=== PATIENT | female | born 1955 | race Caucasian/White ===

== ENCOUNTER 2018-01-17 20:48 | Emergency (ER) | payer OTHER ==
[~2018-01-17 20:48] MED LIST: IBUP-238; MECL25 PO
[2018-01-17 20:59] VITALS: BP 180/86; PULSE 98; RESP 20; TEMP 97.8; O2SAT 100
[2018-01-17] MEDS ORDERED: GABA800T PO (21:11)
[2018-01-17] MEDS ORDERED: GABA100C4 PO (21:11)
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
[2018-01-17] MEDS ORDERED: oxyCODONE/ACETAMINOPHEN 7.5 MG/325 MG TAB PO ONE (22:15)
[2018-01-17] MEDS ORDERED: PERC5TAB12 PO (22:20)
[2018-01-17 22:32] VITALS: BP 145/69
== END 2018-01-17 22:32 | disposition home or self-care (01) ==
LOC: PHED 20:48
DX: S32.502A Unspecified fracture of left pubis, initial encounter for closed fracture (principal); S70.02XA Contusion of left hip, initial encounter; S60.011A Contusion of right thumb without damage to nail, initial encounter; S50.312A Abrasion of left elbow, initial encounter; S80.212A Abrasion, left knee, initial encounter; V18.0XXA Pedal cycle driver injured in noncollision transport accident in nontraffic accident, initial encounter; Y93.55 Activity, bike riding; Z87.09 Personal history of other diseases of the respiratory system; Z87.39 Personal history of other diseases of the musculoskeletal system and connective tissue; Z86.2 Personal history of diseases of the blood and blood-forming organs and certain disorders involving the immune mechanism; Z86.79 Personal history of other diseases of the circulatory system; Z86.718 Personal history of other venous thrombosis and embolism; Z86.69 Personal history of other diseases of the nervous system and sense organs
CPT/HCPCS: 73140; 73502; 99284